=== PATIENT | female | born 2000 | race African-American/Black ===

== ENCOUNTER 2024-03-26 08:17 | Inpatient (IN) | payer OTHER ==
[2024-03-26] MEDS: Lactated Ringer's 1,000 ML IV SCH (08:40)
[2024-03-26] MEDS: Sodium Chloride 0.9% 100 ML ONE (08:41)
[2024-03-26] MEDS: Penicillin G Potassium 5 MILL.UNITS VIAL ONE (08:41)
[2024-03-26] MEDS ORDERED: Carboprost 250 MCG/ML AMP IM PRN (08:49)
[2024-03-26] MEDS ORDERED: fentaNYL 50 mcg/mL 1 mL Vial SLOW IVP PRN (08:49)
[2024-03-26] MEDS ORDERED: Diphenoxylate HCl/Atropine Tablet PO PRN (08:49)
[2024-03-26] MEDS ORDERED: Ondansetron PF 4 MG/2 ML Vial IVP PRN ×3 (08:49→14:41)
[2024-03-26] MEDS ORDERED: Acetaminophen 500 MG TAB PO PRN (08:49)
[2024-03-26] MEDS ORDERED: Misoprostol 200 MCG TAB PR PRN (08:49)
[2024-03-26] MEDS ORDERED: Methylergonovine 0.2 MG/ML VIAL IM PRN (08:49)
[2024-03-26] MEDS ORDERED: Tranexamic Acid 1,000 MG/10 ML VIAL IVP PRN (08:49)
[2024-03-26] MEDS ORDERED: Lidocaine 1% (PF) 30 ML VIAL SC PRN (08:49)
[2024-03-26] MEDS ORDERED: Promethazine HCl 25 MG/ML VIAL IM PRN ×2 (08:49→09:47)
[2024-03-26] MEDS ORDERED: hydrALAZINE 20 MG/ML VIAL SLOW IVP PRN ×2 (08:49→14:41)
[2024-03-26] MEDS ORDERED: HYDROcodone/Acetaminophen 5/325 mg Tablet PO PRN (08:55)
[2024-03-26] MEDS ORDERED: Oxytocin 30 units/NS 500 ML 500 ML IV SCH ×3 (09:00→14:41)
[2024-03-26 09:12] VITALS: BMI 36.6
[2024-03-26 09:27] LABS: Hematocrit 31.5 % (34.9-44.5); Hemoglobin 10.2 g/dL (12.0-15.5); Mean Corpuscular HGB CONC 32.4 g/dL (32.0-36.0); Mean Corpuscular Hemoglobin 23.4 pg (27.0-33.0); Mean Corpuscular Volume 72.2 fL (81.6-98.3); Mean Platelet Volume 9.8 fL (7.4-10.4); Platelet Count 206 10x3/uL (150-450); RBC Distribution Width 16.4 % (11.5-14.5); Red Blood Cell (RBC) Count 4.36 10x6/uL (3.90-5.03)
[2024-03-26] MEDS ORDERED: diphenhydrAMINE 50 MG/ML VIAL IVP PRN (09:47)
[2024-03-26] MEDS ORDERED: Moisturizing Cream (Eucerin) 113 GM JAR TOP PRN (09:47)
[2024-03-26] MEDS ORDERED: Lactated Ringer's 500 ML IV PRN (09:47)
[2024-03-26] MEDS ORDERED: Acetaminophen 325 MG TAB PO PRN (09:47)
[2024-03-26] MEDS ORDERED: Naloxone HCl 0.4 mg/ml Vial IVP PRN ×2 (09:47)
[2024-03-26] MEDS ORDERED: ePHEDrine Sulfate 50 MG/10 ML VIAL SLOW IVP PRN (09:47)
[2024-03-26] MEDS ORDERED: Communication Order-Pharmacy FS SCH (10:00)
[2024-03-26] MEDS ORDERED: fentaNYL 2 mcg/Ropivacaine 0.2% Epidural 100 ML CADD EPIDURAL SCH (10:00)
[2024-03-26 10:07] LABS: HBsAg Index 0.15 S/CO (0-0.99); Hep B Surf Ag - L&D Non-Reactive S/CO (NonReactive); Syphilis Antibody Nonreactive (Nonreactive); Syphilis Antibody Index 0.08 S/CO (<1.00 Non-Reactive)
[2024-03-26] MEDS: Ibuprofen 800 MG TAB PO PRN (11:38)
[2024-03-26] MEDS: Oxytocin 30 units/NS 500 ML 500 ML IV SCH (12:17)
[2024-03-26] MEDS ORDERED: Boostrix 0.5 ML (Tdap) VIAL (>/=7 yrs of age) IM ONE (14:41)
[2024-03-26] MEDS ORDERED: Milk Of Magnesia 30 ML UDCUP PO PRN (14:41)
[2024-03-26] MEDS ORDERED: Lanolin Ointment 7 GM TUBE TOP PRN (14:41)
[2024-03-26] MEDS ORDERED: Preparation H Ointment 28 GM TUBE PR PRN (14:41)
[2024-03-26] MEDS ORDERED: Bisacodyl 10 MG SUPP PR PRN (14:41)
[2024-03-26] MEDS ORDERED: diphenhydrAMINE 25 MG CAP PO PRN (14:41)
[2024-03-26] MEDS: Ferrous Sulfate 325 MG TAB PO SCH (15:51)
[2024-03-26] MEDS: fentaNYL/Ropivacaine Epidural 100 ML ONE (15:51)
[2024-03-26] MEDS: HYDROcodone/Acetaminophen 5/325 mg Tablet PO PRN (18:45)
[2024-03-26] MEDS: Ibuprofen 800 MG TAB PO SCH (21:30)
[2024-03-26] MEDS: Docusate 100 MG CAP PO SCH (21:30)
[2024-03-27] MEDS: Prenatal Vitamin 1 TAB PO SCH (08:53)
[2024-03-28 07:57] VITALS: BP 112/74; TEMP 97.8
== END 2024-03-28 15:00 | disposition home or self-care (01) | DRG 807 ==
LOC: CSHLD/OP 08:17 → CSHLD 10:00 → CSHPP 13:20
PROVIDERS: ADMIT Family Medicine; ATTEND Family Medicine
PROC: 10E0XZZ Delivery of Products of Conception, External Approach (ICD-10-PCS; principal; 2024-03-26)
DX: O99.824 Streptococcus B carrier state complicating childbirth (principal); Z37.0 Single live birth; Z3A.38 38 weeks gestation of pregnancy; O69.81X0 Labor and delivery complicated by cord around neck, without compression, not applicable or unspecified
CPT/HCPCS: 36415; 85027; 86780; 86850; 86900; 86901; 87340; J2540; J2590; J3490; J7120